=== PATIENT | female | born 1980 | race Caucasian/White ===

== ENCOUNTER 2019-08-31 09:21 | Day surgery (SDC) | payer BC ==
[~2019-08-31 09:21] MED LIST: HYDROmorphone INJ1* 1 MG/ML SYRINGE IV PRN; Naloxone* 0.4 MG/ML 1 ML VIAL IV PRN; Ondansetron INJ* 2 MG/ML VIAL IV PRN; PROCHLORPERAZINE INJ 5 MG/ML 2 ML VIAL IV PRN
[2019-08-31] MEDS ORDERED: Buffered Lidocaine 1% SYRIN* 1 ML/SYRINGE INTRADERM ONE (10:48)
[2019-08-31] MEDS ORDERED: Propofol* 10 MG/ML 20 ML BTL ONE (12:22)
[2019-08-31] MEDS ORDERED: HYDROmorphone INJ1* 1 MG/ML SYRINGE ONE (12:22)
[2019-08-31] MEDS ORDERED: Ondansetron INJ* 2 MG/ML VIAL ONE ×2 (12:52→14:54)
[2019-08-31] MEDS ORDERED: Dexamethasone IV* 4 MG/ML 1 ML (4 MG) ONE (12:53)
[2019-08-31] MEDS ORDERED: Ketorolac INJ* 30 MG/ML 1 ML VIAL ONE (12:53)
[2019-08-31] MEDS ORDERED: Ibuprofen TAB* 600 MG PO PRN (13:15)
[2019-08-31] MEDS ORDERED: Lactated Ringers 1000 ML Bag* 1,000 ML IV SCH (14:00)
[2019-08-31] MEDS ORDERED: Ibuprofen TAB* 600 MG ONE (14:58)
[2019-08-31 15:02] VITALS: BP 122/70
[2019-08-31] MEDS ORDERED: PROCHLORPERAZINE INJ 5 MG/ML 2 ML VIAL ONE (15:17)
--- NOTE | 2019-09-01 03:04 | OP ---
DATE OF OPERATION: 08/31/19 - [facility] DATE OF : 78 SURGEON: Danielle Mujica MD ANESTHESIOLOGIST: Dr. Samuels. ANESTHESIA: General endotracheal anesthesia. PRE-OP DIAGNOSIS: Menorrhagia, possible polyp or fibroid on transvaginal ultrasound. POST-OP DIAGNOSIS: Menorrhagia, possible polyp or fibroid on transvaginal ultrasound. There was a fibroid at the fundus. OPERATIVE PROCEDURE: Dilation, hysteroscopy, possible polypectomy, possible myomectomy (remove fibroid), curettage. ESTIMATED BLOOD LOSS: Minimal, approximately 20 cc. FINDINGS: Midline cervix, axial uterus. Uterus sounds to 9. There was a large approximately 2 cm fibroid at the fundus. Otherwise, the endometrium appeared normal. Both tubal ostia were visualized. COMPLICATIONS: None. COUNTS: Sponge, lap, and needle counts were correct x2. CONDITION: The patient was brought to the recovery room awake and in stable condition. DESCRIPTION OF PROCEDURE: The patient was brought to the operating room. When general anesthesia was found to be adequate, the patient was prepped and draped in the usual sterile fashion in the dorsal lithotomy position. Time-out was performed. Exam under anesthesia was performed. A weighted speculum was placed in the vagina. The anterior lip of the cervix was grasped with single- tooth tenaculum and the cervix was gently and easily dilated with graduated Lees dilators. MyoSure was introduced and approximately 2 cm smooth, round fibroid was visualized at the midline of the fundus. Using the MyoSure REACH, the fibroid was removed in its entirety. Both tubal ostia were visualized. No other endometrial polyps or intracavitary fibroids were seen. The single-tooth tenaculum was removed from the cervix. Excellent hemostasis was noted. All instruments were removed from the vagina and the patient was brought to the recovery room awake and in stable condition. [id number]/[facility] #: [id number] [facility]
== END 2019-08-31 15:31 | disposition home or self-care (01) ==
LOC: OR 09:21
PROVIDERS: ATTEND Obstetrics & Gynecology
DX: D25.0 Submucous leiomyoma of uterus (principal); N92.1 Excessive and frequent menstruation with irregular cycle; T83.39XD Other mechanical complication of intrauterine contraceptive device, subsequent encounter; Z87.891 Personal history of nicotine dependence
CPT/HCPCS: 81025; 88305; A9270-GY; J0780; J1100; J1170; J1885; J2405; J2704